=== PATIENT | female | born 1960 | race Caucasian/White ===

== ENCOUNTER 2017-09-25 15:54 | Emergency (ER) | payer BC ==
[2017-09-25 17:09] VITALS: BP 122/79
--- NOTE | 2017-09-25 18:07 | UC ---
FLU HPI - HPI Summary HPI Summary: C/O sorethroat with cough and body aches since yesterday. - History of Current Complaint Chief Complaint: UCRespiratory Stated Complaint: LOW GRADE FEVER SORE THROAT Hx Obtained From: Patient Onset/Duration: Sudden Onset, Lasting Days - 1 Severity Currently: Mild Severity Initially: Moderate Pain Intensity: 10 Associated Signs & Symptoms: Positive: Fever, Cough, Sore Throat, Nasal Congestion Related Hx: Possible Flu/Infectious Exposure - was sick recently - Risk Factors Influenza Risk Factors: Negative - Allergy/Home Medications Allergies/Adverse Reactions: Allergies Allergy/AdvReac Type Severity Reaction Status Date / Time azithromycin Allergy Rash Verified 09/25/17 17:09 Home Medications: Home Medications OLANzapine TAB* [Zyprexa 5 MG TAB*] 5 mg PO 09/25/17 [History] Propranolol HCl [Propranolol HCl ER] 60 mg PO 09/25/17 [History] diazePAM [Diazepam] 3.25 mg PO 09/25/17 [History] hydrOXYzine HCL TAB* [Atarax 25 MG TAB*] 25 mg PO QID PRN 09/25/17 [History Confirmed 09/25/17] traZODone TAB* [Desyrel TAB*] 50 mg PO BEDTIME 09/25/17 [History Confirmed 09/25] PMH/Surg Hx/FS Hx/Imm Hx Psychological History: Anxiety - Surgical History Surgical History: None - Family History Known Family History: Negative: Diabetes - Social History Occupation: Retired Lives: With Family Alcohol Use: None Substance Use Type: None Smoking Status (MU): Never Smoked Tobacco Review of Systems Constitutional: Fever ENT: Sore Throat Respiratory: Cough Musculoskeletal: Myalgia Neurological: Headache Is Patient Immunocompromised?: No All Other Systems Reviewed And Are Negative: Yes Physical Exam Triage Information Reviewed: Yes Appearance: No Pain Distress, Well-Nourished, Ill-Appearing Vital Signs: Initial Vital Signs Temp 103.4 F 09/25/17 17:02 Pulse 84 09/25/17 17:02 Resp 18 09/25/17 17:02 BP 122/79 09/25/17 17:02 Pulse Ox 97 09/25/17 17:02 Vital Signs Reviewed: Yes Eyes: Positive: Conjunctiva Inflamed - ou ENT: Positive: Pharynx normal, TMs normal Neck exam: Normal Respiratory Exam: Normal Cardiovascular Exam: Normal Musculoskeletal Exam: Normal Neurological Exam: Normal Psychological Exam: Normal Skin Exam: Normal Flu Course/Dx - Course Course Of Treatment: Patient is very anxious about possible Tamiflu side effects. She is not high risk so we will hold off on treatment. - Differential Dx/Diagnosis Differential Diagnosis/HQI/PQRI: Influenza, Pneumonia, Upper Respiratory Infection Provider Diagnoses: Influenza A Discharge - Discharge Plan Condition: Stable Disposition: HOME Patient Education Materials: Influenza (ED) Referrals: Non Staff,Doctor [Primary Care Provider] -
== END 2017-09-25 18:19 | disposition home or self-care (01) ==
LOC: UCCORT 15:54
DX: J09.X2 Influenza due to identified novel influenza A virus with other respiratory manifestations (principal); F41.9 Anxiety disorder, unspecified
CPT/HCPCS: 87502; 87651; 99201; G0463

== ENCOUNTER 2017-10-27 11:34 | Emergency (ER) | payer BC ==
[2017-10-27 11:52] VITALS: BP 114/81
--- NOTE | 2017-10-27 12:21 | UC ---
Dizzy HPI HPI Summary: dizziness x 1 day worse as leans forward no nausea , no vomiting , no chest pain , no sob no sinus pain or pressure . - History Of Current Complaint Chief Complaint: UCDizziness Stated Complaint: VERTIGO Time Seen by Provider: 10/27/17 11:37 Hx Obtained From: Patient ?: No Onset/Duration: Gradual Onset, Lasting Days - 1, Still Present Timing: Constant Severity Initially: Moderate Severity Currently: Moderate Pain Intensity: 0 Pain Scale Used: 0-10 Numeric Character: Room Spinning, Dizzy Aggravating Factor(s): Nothing Alleviating Factor(s): Rest Associated Signs And Symptoms: Negative: Nausea, Vomiting, Diaphoresis, Tinnitus , Chest Pain, SOB, Palpitations, Unsteady Gait, Visual Changes, Decreased Oral Intake, Change In Medication, Change In Diet, OTC Medications - Allergies/Home Medications Allergies/Adverse Reactions: Allergies Allergy/AdvReac Type Severity Reaction Status Date / Time azithromycin Allergy Rash Verified 09/25/17 17:09 lactose Allergy GI Upset Verified 10/27/17 11:39 Home Medications: Home Medications Bisoprolol 10(NF) [Zebeta 10 MG(NF)] 60 mg PO 10/27/17 [History] Fluoxetine HCl [Prozac] 10/27/17 [History] SUMAtriptan TAB* [Imitrex TAB*] 25 mg PO SEE INSTRUCTIONS 10/27/17 [History Confirmed 10/27/17] PMH/Surg Hx/FS Hx/Imm Hx Psychological History: Anxiety - Surgical History Surgical History: None - Family History Known Family History: Negative: Diabetes - Social History Alcohol Use: None Substance Use Type: None Smoking Status (MU): Never Smoked Tobacco Review of Systems Constitutional: Negative Skin: Negative Eyes: Negative ENT: Negative Respiratory: Negative Cardiovascular: Negative Gastrointestinal: Negative Musculoskeletal: Negative Psychological: Anxious Is Patient Immunocompromised?: No All Other Systems Reviewed And Are Negative: Yes Physical Exam Triage Information Reviewed: Yes Appearance: Well-Appearing, No Pain Distress, Well-Nourished Vital Signs: Initial Vital Signs Temp 99.0 F 10/27/17 11:47 Pulse 56 10/27/17 11:47 Resp 18 10/27/17 11:47 BP 114/81 10/27/17 11:47 Pulse Ox 98 10/27/17 11:47 Vital Signs Reviewed: Yes Eye Exam: Normal Eyes: Positive: Conjunctiva Clear ENT: Positive: Normal ENT inspection, Hearing grossly normal, Pharynx normal, TMs normal. Negative: Pharyngeal erythema, Nasal congestion, Nasal drainage, TM bulging, TM dull, TM red Neck exam: Normal Neck: Positive: Supple, Nontender, No Lymphadenopathy Respiratory: Positive: Chest non-tender, Lungs clear, Normal breath sounds, No respiratory distress Cardiovascular: Positive: RRR, No Murmur, Pulses Normal Abdominal Exam: Normal Abdomen Description: Positive: Nontender, Soft Bowel Sounds: Positive: Present Musculoskeletal Exam: Normal Musculoskeletal: Positive: Strength Intact, ROM Intact, No Edema Skin Exam: Normal UC Physical Exam Vital Signs On Initial Exam: Initial Vitals Temp Pulse Resp BP Pulse Ox 99.0 F 56 18 114/81 98 10/27/17 11:47 10/27/17 11:47 10/27/17 11:47 10/27/17 11:47 10/27/17 11:47 - Neurological Exam Neurological: Normal, Sensory/Motor Intact, Alert, Oriented to Person Place, Time, CN Intact II-III, Reflexes Intact, Normal Gait, Speech Normal Dizzy Course/Dx - Differential Dx/Diagnosis Provider Diagnoses: vertigo Discharge - Discharge Plan Condition: Stable Disposition: HOME Prescriptions: Meclizine TAB* [Antivert 12.5 TAB*] 25 mg PO TID PRN #15 tab PRN Reason: Dizziness Patient Education Materials: Vertigo (DC) Referrals: Non Staff,Doctor [Primary Care Provider] - 7 Days
== END 2017-10-27 12:10 | disposition home or self-care (01) ==
LOC: UCCORT 11:34
DX: R42 Dizziness and giddiness (principal); Z88.1 Allergy status to other antibiotic agents; Z91.011 Allergy to milk products; F41.9 Anxiety disorder, unspecified
CPT/HCPCS: 99212; G0463

== ENCOUNTER 2024-09-18 09:30 | Inpatient (IN) ==
[2024-09-18 11:02] LABS: ABS Lymphocytes 1.5 10^3/uL (1.0-4.8); ABS Monocytes 0.3 10^3/uL (0.0-0.9); ABS Neutrophils 2.4 10^3/uL (1.5-7.6); ABS Nucleated RBC 0.01 10^3/ul; Eosinophil % 0.8 %; Hemoglobin 15.5 g/dL (11.5-14.3); Lymphocyte % 35.5 %; Mean Corpuscular Hemoglobin 32.3 pg (27-33); Mean Corpuscular Hgb Conc 35.3 g/dL (31-36); Mean Corpuscular Volume 91.5 fL (80-97); Mean Platelet Volume 7.5 fL (7.5-11.2); Nucleated Red Blood Cells % 0.2 %/100WBC (0.0-0.8); Platelet Count 305 10^3/uL (150-450); Red Blood Count 4.81 10^6/uL (3.63-4.92); Red Cell Distribution Width 12.7 % (12-17); White Blood Count 4.3 10^3/uL (3.8-11.8)
[2024-09-18 11:15] LABS: Urine Appearance Clear; Urine Bilirubin Negative (Negative); Urine Blood Negative (Negative); Urine Color Light-Yellow; Urine Glucose Negative (Negative); Urine Ketones Negative (Negative); Urine Nitrite Negative (Negative); Urine Protein Negative (Negative); Urine Specific Gravity 1.014 (1.002-1.030); Urine Urobilinogen Negative (Negative)
[2024-09-18 11:17] LABS: Urine Bacteria Absent /HPF (Absent); Urine Red Blood Cell Trace(0-2/hpf) /HPF (0-Trace); Urine Squamous Epithelial Cell Present /HPF (Absent); Urine White Blood Cell Trace(0-5/hpf) /HPF (0-Trace)
[2024-09-18 11:21] LABS: Urine Benzodiazepine Screen Presumptive Positive (None Detect); Urine Cannabinoids Screen None Detected (None Detect); Urine Opiates Screen None Detected (None Detect)
[2024-09-18 11:26] LABS: ALT 12 U/L (7-52); AST 16 U/L (13-39); Acetaminophen 15 mcg/mL; Albumin 4.8 g/dL (3.5-5.7); Albumin/Globulin Ratio 1.7 (1-3); Alcohol, S < 13 mg/dL (<13); Alkaline Phosphatase 51 U/L (35-149); Anion Gap 10 mmol/L (2-16); Blood Urea Nitrogen 12 mg/dL (6-24); CO2 Carbon Dioxide 19 mmol/L (22-32); Calcium 10.1 mg/dL (8.6-10.3); Chloride 111 mmol/L (101-111); Creatinine, Serum 1.11 mg/dL (0.51-0.95); Globulin 2.9 g/dL (2-4); Glucose 100 mg/dL (70-100); Salicylate < 2.50 mg/dL (<30); Sodium 140 mmol/L (135-145); Total Bilirubin 0.8 mg/dL (0.2-1.0); Total Protein 7.7 g/dL (6.4-8.9); eGFR CKD-EPI 55.9 (>60)
[2024-09-18 11:31] LABS: HCG Pregnancy 4.95 mIU/mL
[2024-09-18 11:40] LABS: TSH Ultra Thyroid Stim Horm 1.02 mcIU/mL (0.34-5.60)
[2024-09-18] MEDS ORDERED: Al Hydrox/Mg Hydrox/Simet LIQ 30 ML UDC PO PRN (12:29)
[2024-09-19 08:37] LABS: HDL Cholesterol 57.8 mg/dL
[2024-09-19] MEDS: Saline NASAL SPRAY 0.65% BTL BOTH NARES PRN (21:26)
[2024-09-20] MEDS: PTO:RIMEGEPANT SULFATE 75 MG ODT TAB (NF) PO SCH (04:06)
[2024-09-21] MEDS ORDERED: ZOLMITRIPTAN 2.5 MG PO PRN (09:00)
[2024-09-21] MEDS: Phenylephrine 1% NASAL 15 ML BOT BOTH NARES PRN (17:33)
[2024-09-24 10:24] VITALS: BP 128/85
== END 2024-09-24 12:04 | disposition home or self-care (01) | DRG 751 ==
LOC: ED 09:30 → BSU 12:29
PROVIDERS: ADMIT Psychiatry & Neurology Psychiatry; ATTEND Psychiatry & Neurology Psychiatry